=== PATIENT | female | born 1950 | race Caucasian/White ===

== ENCOUNTER 2017-08-23 17:37 | Emergency (ER) | payer OTHER ==
[2017-08-23 18:17] VITALS: BP 125/78
--- NOTE | 2017-08-23 18:53 | UC ---
Hand/Wrist HPI - HPI Summary HPI Summary: 66 yo female with mild right index finger bruising x 1 week States it fells like she bumped it slight swelling - History Of Current Complaint Chief Complaint: UCUpperExtremity Stated Complaint: PURPLE FINGER Time Seen by Provider: 08/23/17 18:36 Hx Obtained From: Patient Onset/Duration: Gradual Onset, Lasting Days - 7 Severity Initially: Mild Severity Currently: Mild Pain Intensity: 1 Pain Scale Used: 0-10 Numeric Character Of Pain: Dull, Aching Aggravating Factor(s): Movement Alleviating Factor(s): Nothing Associated Signs And Symptoms: Positive: Swelling, Bruising Related History: Dominant Hand Right - Allergies/Home Medications Allergies/Adverse Reactions: Allergies Allergy/AdvReac Type Severity Reaction Status Date / Time Bee Venom Allergy Rash Verified 08/23/17 18:02 Ramipril Allergy Shakes Verified 08/23/17 18:02 Sulfa Antibiotics Allergy Rash Verified 08/23/17 18:02 Home Medications: Home Medications Cholecalciferol [Vitamin D] 1,000 units DAILY 08/23/17 [History Confirmed ] PMH/Surg Hx/FS Hx/Imm Hx Previously Healthy: Yes Cardiovascular History: Hypertension - Surgical History Surgical History: Yes Surgery Procedure, Year, and Place: csection - Family History Known Family History: Positive: Hypertension - Social History Alcohol Use: Daily Alcohol Amount: 1-2 glasses wine/ day Substance Use Type: None Smoking Status (MU): Never Smoked Tobacco - Immunization History Most Recent Influenza Vaccination: 2017 Most Recent Tetanus Shot: states up to date Review of Systems Constitutional: Negative Skin: Bruising Eyes: Negative ENT: Negative Respiratory: Negative Cardiovascular: Negative Gastrointestinal: Negative Genitourinary: Negative Motor: Negative Neurovascular: Negative Musculoskeletal: Negative Neurological: Negative Psychological: Negative Is Patient Immunocompromised?: No All Other Systems Reviewed And Are Negative: Yes Physical Exam Triage Information Reviewed: Yes Appearance: Well-Appearing, No Pain Distress, Well-Nourished Vital Signs: Initial Vital Signs Temp 98.1 F 08/23/17 18:05 Pulse 70 08/23/17 18:05 Resp 16 08/23/17 18:05 BP 125/78 08/23/17 18:05 Pulse Ox 98 08/23/17 18:05 Vital Signs Reviewed: Yes Eyes: Positive: Conjunctiva Clear Neck: Positive: Supple Respiratory: Positive: Lungs clear, Normal breath sounds, No respiratory distress Cardiovascular: Positive: RRR, No Murmur Musculoskeletal: Positive: ROM Intact, Other: - see image Neurological Exam: Normal Psychological Exam: Normal Hand/Wrist Course/Dx - Differential Dx/Diagnosis Provider Diagnoses: ecchymotic right index finger Discharge - Discharge Plan Condition: Stable Disposition: HOME Patient Education Materials: Contusion in Adults (ED) Referrals: Tatyana Pereira MD [Primary Care Provider] - If Needed Additional Instructions: This looks like some bruising from trivial trauma I see nothing to suggest a vascular/circulation issue It should resolve in another week or so No specific treatment necessary Images Hands: 1 - ecchymotic/from/n/v intact, good cap refill
== END 2017-08-23 19:00 | disposition home or self-care (01) ==
LOC: UCEAST 17:37
DX: R23.3 Spontaneous ecchymoses (principal); I10 Essential (primary) hypertension; Z88.2 Allergy status to sulfonamides
CPT/HCPCS: 99211; G0463

== ENCOUNTER 2018-07-09 07:58 | Day surgery (SDC) | payer OTHER ==
--- NOTE | 2018-07-03 18:33 | HP ---
AMENDED REPORT NOW INCLUDES COSIGNER DESIGNATION PREOPERATIVE HISTORY AND PHYSICAL: DATE OF ADMISSION/SURGERY: 07/05/18 DATE OF OFFICE VISIT/ENCOUNTER: 07/03/18 ATTENDING SURGEON: Nisha Pringle MD * (DICTATED BY RANDAL KEITH) PROCEDURE: Right elbow open reduction and internal fixation of olecranon. CHIEF COMPLAINT: Right elbow pain after fall. HISTORY OF PRESENT ILLNESS: This is a 67-year-old female, who injured her right elbow earlier this month. She was in [facility] at that time and she stepped on a wet sidewalk grate and fell onto her right elbow. She was seen in the hospital at [facility] and had x-rays of her shoulder, elbow and wrist. The elbow x-rays show a comminuted nondisplaced fracture of the proximal ulna and a minimally displaced fracture of her radial head. Shoulder and wrist x-rays were normal. She was referred to Dr. Pringle for further evaluation and treatment considerations. She denies any associated numbness or tingling of the right upper extremity. Dr. Pringle is recommending surgical intervention for best outcome and the patient has consented to proceed. She has a history of cardiac issues and is followed by Dr. Louis. We will receive clearance from him prior to proceeding with surgery. PAST MEDICAL HISTORY: 1. History of heart palpitations. 2. Mitral valve disorder. 3. Exercise-induced asthma. 4. Sleep apnea with CPAP. 5. Hypertension. PAST SURGICAL HISTORY: . CURRENT MEDICATIONS: 1. Cyclobenzaprine 5 mg 1 tab t.i.d. as needed for muscle spasms. 2. Eplerenone 25 mg daily. 3. Flector patch 1.3% apply 1 patch to affected area q.12 hours p.r.n. 4. Nitrostat 0.4 mg 1 tab q.5 minutes up to 3 doses p.r.n. 5. Potassium chloride 20 mEq daily. 6. ProAir inhaler p.r.n. 7. Vitamin D3 1000 units daily. 8. Xanax 0.25 mg 3 times a day. ALLERGIES: SULFA ANTIBIOTICS cause a rash and RAMIPRIL, the patient reports that she did not tolerate it well. FAMILY MEDICAL HISTORY: Cancer and hypertension. 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 She denies tobacco use and recreational drug use. She drinks alcohol on regular occasion, approximately 2 glasses of wine daily. REVIEW OF SYSTEMS: Negative for general, cephalic, cardiovascular, respiratory , GI, , other musculoskeletal, integumentary, endocrine, neurologic, and hematologic symptoms. Infectious Disease: Negative for MRSA, hepatitis C, HIV. PHYSICAL EXAMINATION GENERAL: Well-developed, well-nourished 67-year-old female, in no acute distress. VITAL SIGNS: Height 5 feet 4-1/2 inches, weight 158 pounds. Blood pressure 132 /78, pulse rate 67. HEENT: Normocephalic, atraumatic. Pupils are equal, round, and reactive to light and accommodation. Extraocular movements are intact. Throat is clear. NECK: Supple. No palpable lymph nodes. PULMONARY: Lungs are clear to auscultation bilaterally. No wheezes, rales or rhonchi. CARDIOVASCULAR: Regular rate and rhythm. S1, S2. No murmurs, rubs or gallops. No edema. ABDOMEN: Positive bowel sounds. Soft, nontender. NEUROLOGICAL: Alert and oriented x3. Cranial nerves II through XII are intact. Sensation is intact to light touch. MUSCULOSKELETAL: On exam of her right elbow, there is a moderate amount of ecchymosis from the elbow down to the wrist, some swelling of the elbow and in her fingers. She has trouble making a full fist because of the swelling. Neurovascular function is intact. Any attempt at elbow motion is very painful. IMAGING STUDIES: X-rays, AP, lateral and oblique of the right elbow show a comminuted nondisplaced fracture of the olecranon as well as a minimally displaced radial head fracture with a very small fragment. IMPRESSION: Right elbow olecranon fracture and right radial head fracture. PLAN: The patient is scheduled to undergo a right elbow open reduction and internal fixation of the olecranon with Dr. Pringle on 07/05/18. She will return to the office 10 days postop for followup and suture removal. A prescription for Tylenol No. 3 was e-scribed to the patient's pharmacy for postoperative pain management. RANDAL KEITH [id number]/[facility] #: [id number] ALAN
[~2018-07-09 07:58] MED LIST: Buffered Lidocaine 0.9% SYRIN* 5 ML/SYR SYRINGE INTRADERM ONE
[2018-07-09] MEDS ORDERED: ceFAZolin 2 GM PREMIX in ORs 2 GM/50 ML BAG IVPB ONE (08:14)
[2018-07-09] MEDS ORDERED: fentaNYL* 50 MCG/ML 2 ML VIAL (100 MCG VIAL) ONE (09:27)
[2018-07-09] MEDS ORDERED: Midazolam* 1 MG/ML 2 ML VIAL (2 MG) ONE (09:27)
[2018-07-09] MEDS ORDERED: Bupivacaine 0.5% W/EPI SDV* 30 ML VIAL ONE (10:00)
[2018-07-09] MEDS ORDERED: Ondansetron INJ* 2 MG/ML VIAL ONE (10:47)
[2018-07-09] MEDS ORDERED: Propofol* 10 MG/ML 20 ML BTL IV PUSH ONE (10:47)
[2018-07-09] MEDS ORDERED: Lidocaine 2% PF * 5 ML VIAL ONE (10:47)
[2018-07-09] MEDS ORDERED: Dexamethasone IV* 4 MG/ML 1 ML (4 MG) ONE (10:47)
[2018-07-09] MEDS ORDERED: EPHEDrine (Pressors)* 50 MG/ML VIAL ONE (10:58)
[2018-07-09] MEDS ORDERED: Metoclopramide IV* 5 MG/ML 2 ML VIAL IV PRN (11:01)
[2018-07-09] MEDS ORDERED: Scopolamine 1.5 mg* PATCH TRANSDERM PRN (11:01)
[2018-07-09] MEDS ORDERED: PROCHLORPERAZINE INJ 5 MG/ML 2 ML VIAL IV PRN (11:01)
[2018-07-09] MEDS ORDERED: Naloxone* 0.4 MG/ML 1 ML VIAL IV PRN (11:01)
[2018-07-09 12:31] VITALS: BP 128/77
--- NOTE | 2018-07-09 21:33 | OP ---
DATE OF OPERATION: 07/09/18 [facility] DATE OF : 50 SURGEON: Nisha Pringle MD [employer] SPECIALIST: RANDAL De Oliveira ANESTHESIA: General plus block. PRE-OP DIAGNOSIS: Olecranon fracture of the right elbow and right radial head fracture. POST-OP DIAGNOSIS: Olecranon fracture of the right elbow and right radial head fracture. OPERATIVE PROCEDURE: Open reduction internal fixation of the right olecranon. ESTIMATED BLOOD LOSS: Zero. TOURNIQUET TIME: About an hour. INDICATIONS FOR PROCEDURE: Jocelyn is a 67-year-old female who suffered a comminuted fracture of her right olecranon and a very small fragment fracture of her right radial head. Options of conservative treatment with casting versus ORIF of the elbow were discussed with the patient. I recommended ORIF and she has agreed to proceed. DESCRIPTION OF PROCEDURE: The patient was brought to the operating room, was given a block and a general anesthetic. The skin of her right upper extremity was prepped and draped in the usual sterile fashion. The right upper extremity was exsanguinated and the tourniquet elevated to 250 mmHg. A posterior incision was made along the subcutaneous border of the olecranon. We dissected through the subcutaneous tissue sharply through the fascia on the border of the ulna and then subperiosteally dissected down the shaft of the ulna sufficiently distal to the furthest distal fracture fragment. A plate from the [employer] olecranon set was chosen for the appropriate length and its position was checked on the C-arm. The plate was bent to fit nicely on the proximal ulna and was secured with 4 proximal and 4 distal screws. The position of all the screws and fracture fragments were checked on the C-arm in the AP and lateral views and found to be satisfactory. In flexion and extension of the elbow, there is very good range of motion and no instability and no gapping at the articular surface. There was some crepitus with rotation of the forearm and this was from the small radial head fragment, it was decided to leave this in place. The wound was copiously irrigated with saline. The fascia was reapproximated with a 0 Vicryl suture. The subcutaneous tissue was closed with 3-0 Vicryl and the skin with skin cee. The wound was dressed with Xeroform , 4x4, Webril, and a posterior splint. The patient tolerated the procedure well and was brought to the recovery room in good condition. [id number]/[facility] #: [id number] ALAN
== END 2018-07-09 12:51 | disposition home or self-care (01) ==
LOC: OREAST 07:58
PROVIDERS: ATTEND Orthopaedic Surgery
DX: S52.021A Displaced fracture of olecranon process without intraarticular extension of right ulna, initial encounter for closed fracture (principal); S52.124A Nondisplaced fracture of head of right radius, initial encounter for closed fracture; W18.39XA Other fall on same level, initial encounter; Y92.480 Sidewalk as the place of occurrence of the external cause; I34.8 Other nonrheumatic mitral valve disorders; I10 Essential (primary) hypertension; G47.33 Obstructive sleep apnea (adult) (pediatric); R00.2 Palpitations; J45.990 Exercise induced bronchospasm; G89.18 Other acute postprocedural pain
CPT/HCPCS: C1713; C1776; J0690; J1100; J2250; J2405; J2704; J3010

== ENCOUNTER 2022-11-10 09:34 | Observation (INO) ==
[2022-11-10] MEDS ORDERED: Iodixanol (CONTRAST) 320 MG/ML 100 ML SDV IV ONE (09:56)
[2022-11-10 10:01] LABS: ABS Eosinophils 0.2 10^3/ul (0-0.6); ABS Lymphocytes 1.1 10^3/ul (1.0-4.8); ABS Monocytes 0.4 10^3/ul (0-0.8); ABS Neutrophils 2.2 10^3/ul (1.5-7.7); Eosinophil % 6.3 %; Hematocrit 47 % (35-47); Hemoglobin 15.8 g/dL (12.0-16.0); Lymphocyte % 27.8 %; Mean Corpuscular HGB Conc 34 g/dL (31-36); Mean Corpuscular Hemoglobin 30 pg (27-31); Mean Corpuscular Volume 89 fL (80-97); Mean Platelet Volume 8.3 fL (7.4-10.4); Nucleated Red Blood Cells % 0.1; Platelet Count 244 10^3/uL (150-450); Red Blood Count 5.29 10^6 /uL (3.70-4.87); Red Cell Distribution Width 13 % (10-15)
[2022-11-10 10:09] LABS: Activated Partial Thrombo Time 30.6 seconds (26.0-38.0); INR 1.01 (0.88-1.18)
[2022-11-10 11:02] LABS: Albumin 4.7 g/dL (3.2-5.2); Albumin/Globulin Ratio 1.7 (1-3); Calcium 9.7 mg/dL (8.6-10.3); Creatinine, Serum 0.84 mg/dL (0.51-0.95); Globulin 2.8 g/dL (2-4); HDL Cholesterol 64.4 mg/dL; Potassium 4.3 mmol/L (3.5-5.0); Total Bilirubin 0.4 mg/dL (0.2-1.0); Total Protein 7.5 g/dL (6.4-8.9); eGFR CKD-EPI 73.8 (>60)
[2022-11-10 11:33] LABS: Urine Appearance Clear; Urine Bilirubin Negative (Negative); Urine Blood 1+ (Negative); Urine Color Colorless; Urine Glucose Negative (Negative); Urine Ketones Negative (Negative); Urine Nitrite Negative (Negative); Urine Protein Negative (Negative); Urine Specific Gravity 1.017 (1.002-1.030); Urine Urobilinogen Negative (Negative)
[2022-11-10 12:06] LABS: Urine Bacteria Absent (Absent); Urine Red Blood Cell Trace(0-2/hpf) (Absent); Urine White Blood Cell Absent (Absent)
[2022-11-10] MEDS ORDERED: Lactated Ringers 1000 ml BAG 1,000 ML IV ONE (15:55)
[2022-11-10] MEDS: Enoxaparin 40 MG/0.4 ML SYR SUBCUT SCH (16:35)
[2022-11-11] MEDS ORDERED: Potassium Chlor 20 meq TAB.ER PO SCH (09:00)
[2022-11-11] MEDS ORDERED: Cholecalciferol (VIT D3) 1,000 unit TAB PO SCH (09:00)
[2022-11-11 11:14] VITALS: BP 112/74
[2022-11-11] MEDS: Enoxaparin 40 MG/0.4 ML SYR SUBCUT SCH (12:46)
== END 2022-11-11 12:50 | disposition home or self-care (01) ==
LOC: EDHOLD 09:34 → ED 09:34 → EDHOLD 12:58 → MEDTELE 14:18
PROVIDERS: ADMIT Student in an Organized Health Care Education/Training Program; ATTEND Student in an Organized Health Care Education/Training Program